=== PATIENT | male | born 1960 | race Caucasian/White ===

== ENCOUNTER → 2021-03-01 | Outpatient (CLI) | payer OTHER ==
[2021-03-01 10:15] LABS: HEMOGLOBIN 13.4 gm/dl (14.0-17.5); RED BLOOD COUNT 4.65 M/UL (4.20-5.50); WHITE BLOOD COUNT 10.2 K/UL (4.5-11.0)
[2021-03-01 10:39] LABS: BUN/CREATININE RATIO 14 (0-10)
== END ==
LOC: LAB 09:02
PROVIDERS: Nurse Practitioner
DX: J20.8 Acute bronchitis due to other specified organisms (principal); N18.2 Chronic kidney disease, stage 2 (mild); R60.0 Localized edema; R53.83 Other fatigue
CPT/HCPCS: 36415; 80053; 85025; 85379

== ENCOUNTER → 2021-07-11 | Outpatient (CLI) | payer OTHER ==
[2021-07-13 13:09] LABS: CHOLESTEROL, TOTAL 167 mg/dL (100-199); HDL SIZE 8.8 nm (>=9.2); HDL-C 42 mg/dL (>39); HDL-P (TOTAL) 30.5 umol/L (>=30.5); LARGE HDL-P 4.9 umol/L (>=4.8); LARGE VLDL-P 2.9 nmol/L (<=2.7); LDL SIZE 20.8 nm (>20.5); LDL SIZE 20.8 nm (>=20.8); LDL-C 105 mg/dL (0-99); LDL-P 1204 nmol/L (<1000); LP-IR SCORE 51 (<=45); SMALL LDL-P 552 nmol/L (<=527); TRIGLYCERIDES 109 mg/dL (0-149); VLDL SIZE 41.8 nm (<=46.6)
== END ==
LOC: LAB 09:17
PROVIDERS: Emergency Medicine
DX: J20.9 Acute bronchitis, unspecified (principal); I10 Essential (primary) hypertension; E29.1 Testicular hypofunction
CPT/HCPCS: 36415; 80061; 83704; 84153; 84443